=== PATIENT | male | born 1955 | race Caucasian/White ===

== ENCOUNTER 2017-07-21 16:22 | Inpatient (IN) | payer MEDICARE ==
[~2017-07-21] VITALS: Ht 180.3 cm; Wt 90.1 kg
[~2017-07-21 16:22] MED LIST: BENA5TAB2 PO; CITA10TA4 PO; DULO20CA45 PO; ETOMIDATE 40 MG/20 ML ONE; FENTANY TD; MIDAZOLAM 1 MG/ML, 5ML ONE; OXYC-307 PO; PREG25CA PO; PROPOFOL 10 MG/ML, 100ML IV ONE; SUCCINYLCHOLINE 20 MG/ML, 10ML ONE; TRAM50TA2 PO; VECURONIUM 10 MG ONE
[2017-07-21] MEDS ORDERED: SODIUM CHLORIDE FLUSH 10ML SYR IVF ONE (16:30)
[2017-07-21] MEDS ORDERED: LORazepam 2 MG/ML, 1ML ONE ×2 (16:37→19:10)
[2017-07-21 16:53] LABS: HEMATOCRIT 44.4 % (39.2-51.8); HEMOGLOBIN 14.6 g/dL (13.7-18.0); WHITE BLOOD COUNT 14.1 x10^3/uL (3.4-10)
[2017-07-21 16:58] LABS: BLOOD UREA NITROGEN 18 mg/dL (7-18)
[2017-07-21 17:02] LABS: ACETAMINOPHEN < 2 mcg/mL (10-30); ASPARTATE AMINO TRANSFERASE 18 U/L (15-37); IS PT STATUS REG ER OR PRE ER? YES
[2017-07-21 17:20] LABS: DAU SCREEN DISCLAIMER
[2017-07-21 18:07] LABS: ABG COLLECTION SITE RIGHT RADIAL; COLLATERAL CIRCULATION TESTING NORMAL
[2017-07-21] MEDS: LORazepam 2 MG/ML, 1ML IVPush PRN ×3 (18:07→19:38)
[2017-07-21] MEDS ORDERED: ZIPRASIDONE 20 MG INJ IM ONE ×2 (18:22→19:00)
[2017-07-21] MEDS ORDERED: SODIUM CHLORIDE FLUSH 10ML SYR IVF PRN (19:00)
[2017-07-21] MEDS ORDERED: FENTANYL PF 100 MCG/2ML ONE (19:24)
[2017-07-21] MEDS ORDERED: ETOMIDATE 20 MG/10 ML IV ONE (19:30)
[2017-07-21] MEDS ORDERED: SUCCINYLCHOLINE 20 MG/ML, 10ML IVPush ONE (19:30)
[2017-07-21] MEDS ORDERED: FENTANYL PF 100 MCG/2ML IV ONE (19:30)
[2017-07-21] MEDS: PROPOFOL 100 ML IV PRN ×4 (19:38→23:54)
[2017-07-21 19:51] LABS: ABG COLLECTION SITE LEFT RADIAL; COLLATERAL CIRCULATION TESTING NORMAL
[2017-07-21] MEDS ORDERED: MIDAZOLAM 1 MG/ML, 2ML IVPush ONE (20:00)
[2017-07-21] MEDS: CEFTRIAXONE PMX 2GM/50ML 50 ML IV SCH (20:00)
[2017-07-21] MEDS ORDERED: BISACODYL 10 MG SUPP PR PRN (20:00)
[2017-07-21] MEDS ORDERED: VANCOMYCIN PER PHARMACY MC PRN (20:00)
[2017-07-21] MEDS ORDERED: morphine SULFATE 10 MG/ML, 1ML IVPush PRN (20:00)
[2017-07-21] MEDS ORDERED: ONDANSETRON 2MG/ML, 2ML IVPush PRN (20:00)
[2017-07-21] MEDS ORDERED: PROPOFOL 100 ML IV ONE ×2 (20:59→23:21)
[2017-07-21] MEDS ORDERED: VECURONIUM 10 MG IVPush ONE (21:00)
[2017-07-21] MEDS ORDERED: CEFTRIAXONE PMX 1GM/50ML 0 ML ONE (21:35)
[2017-07-21] MEDS ORDERED: CEFTRIAXONE PMX 2GM/50ML 50 ML ONE (21:40)
[2017-07-21] MEDS ORDERED: PHARMACOKINETIC MONITORING MC PRN (22:30)
[2017-07-21] MEDS ORDERED: VANCOMYCIN 1,600 MG in SODIUM CHLORIDE 0.9% 250 ML IV SCH (22:30)
[2017-07-21] MEDS ORDERED: PHARMACOKINETIC CONSULTATION MC ONE (22:30)
[2017-07-21] MEDS: NS + 20MEQ KCL 1,000 ML IV SCH (22:33)
[2017-07-21] MEDS: SODIUM CHLORIDE 0.9% IV SCH (22:39)
[2017-07-21] MEDS: ACYCLOVIR IV SCH (22:39)
[2017-07-21] MEDS: FAMOTIDINE 20 MG/2 ML IVPush SCH (22:43)
[2017-07-21] MEDS: FENTANYL PF 100 MCG/2ML IVPush PRN ×2 (22:43→23:53)
[2017-07-21] MEDS: HEPARIN 5,000 UNITS/ML, 1ML SQ SCH (22:43)
[2017-07-21] MEDS: VANCOMYCIN 1,700 MG in SODIUM CHLORIDE 0.9% 250 ML IV SCH (23:53)
[2017-07-21] MEDS: QUETIAPINE 25MG TABLET PO SCH (23:53)
[2017-07-22] MEDS ORDERED: FAMOTIDINE 20 MG/2 ML IV SCH
[2017-07-22] MEDS ORDERED: SENNA/DOCUSATE TABLET NG PRN
[2017-07-22] MEDS ORDERED: BISACODYL 10 MG SUPP PR PRN
[2017-07-22] MEDS ORDERED: PHARMACY MAY ADJ FOR RENAL FX MC SCH
[2017-07-22] MEDS ORDERED: SENNOSIDES 8.8 MG/5 ML ORAL SOL NG PRN
[2017-07-22] MEDS ORDERED: LIDOCAINE-MPF 1%, 2ML ENDO PRN
[2017-07-22] MEDS ORDERED: FENTANYL PF 100 MCG/2ML IVPush PRN
[2017-07-22] MEDS ORDERED: LACTULOSE 20 GM/30 ML UDC NG PRN
[2017-07-22] MEDS ORDERED: HEPARIN 5,000 UNITS/ML, 1ML SQ SCH
[2017-07-22] MEDS: FENTANYL PF 100 MCG/2ML IVPush PRN ×8 (02:43→22:41)
[2017-07-22] MEDS: PROPOFOL 100 ML IV PRN ×6 (03:38→21:58)
[2017-07-22] MEDS: ALBUTEROL/IPRATROPIUM 2.5MG/0.5MG, 3 ML INLINE SCH ×6 (04:00→19:06)
[2017-07-22 04:10] VITALS: BP 126/66
[2017-07-22 04:14] LABS: ABG COLLECTION SITE RIGHT RADIAL; COLLATERAL CIRCULATION TESTING NORMAL
[2017-07-22 04:25] LABS: HEMATOCRIT 39.4 % (39.2-51.8); HEMOGLOBIN 12.9 g/dL (13.7-18.0); WHITE BLOOD COUNT 12.8 x10^3/uL (3.4-10)
[2017-07-22 04:28] LABS: ASPARTATE AMINO TRANSFERASE 17 U/L (15-37); BLOOD UREA NITROGEN 21 mg/dL (7-18)
[2017-07-22] MEDS: HEPARIN 5,000 UNITS/ML, 1ML SQ SCH ×3 (06:23→22:44)
[2017-07-22] MEDS: CEFTRIAXONE PMX 2GM/50ML 50 ML IV SCH ×3 (06:23→19:53)
[2017-07-22] MEDS: ACYCLOVIR IV SCH ×3 (06:41→22:43)
[2017-07-22] MEDS: SODIUM CHLORIDE 0.9% IV SCH ×3 (06:41→22:43)
[2017-07-22] MEDS: FAMOTIDINE 20 MG/2 ML IVPush SCH ×2 (09:14→21:09)
[2017-07-22] MEDS: QUETIAPINE 25MG TABLET PO SCH ×2 (09:14→15:35)
[2017-07-22] MEDS ORDERED: LIDOCAINE 1%, 20ML ONE (10:38)
[2017-07-22] MEDS: NS + 20MEQ KCL 1,000 ML IV SCH ×3 (10:44→23:02)
[2017-07-22] MEDS: VANCOMYCIN 1,700 MG in SODIUM CHLORIDE 0.9% 250 ML IV SCH (12:54)
[2017-07-22] MEDS: LORazepam 2 MG/ML, 1ML IVPush PRN (13:40)
[2017-07-22 14:24] LABS: CYTOLOGY BODY FLUID RECD INTO PATHOLOGY; CYTOLOGY BODY FLUID SOURCE CEREBROSPINAL FLUID
[2017-07-22 14:45] LABS: GLUCOSE, CSF 81 mg/dL (40-80)
[2017-07-23] MEDS: VANCOMYCIN 1,700 MG in SODIUM CHLORIDE 0.9% 250 ML IV SCH ×2 (00:04→12:00)
[2017-07-23] MEDS: QUETIAPINE 25MG TABLET PO SCH ×4 (00:04→23:50)
[2017-07-23] MEDS: PROPOFOL 100 ML IV PRN ×6 (00:46→19:56)
[2017-07-23] MEDS: FENTANYL PF 100 MCG/2ML IVPush PRN ×6 (01:12→22:38)
[2017-07-23] MEDS: ALBUTEROL/IPRATROPIUM 2.5MG/0.5MG, 3 ML INLINE SCH ×7 (03:54→22:30)
[2017-07-23 04:00] VITALS: BP 120/68
[2017-07-23 04:43] LABS: ABG COLLECTION SITE LEFT RADIAL; COLLATERAL CIRCULATION TESTING NORMAL
[2017-07-23 04:50] LABS: HEMATOCRIT 35.2 % (39.2-51.8); HEMOGLOBIN 11.5 g/dL (13.7-18.0)
[2017-07-23 04:58] LABS: BLOOD UREA NITROGEN 23 mg/dL (7-18)
[2017-07-23 05:02] LABS: ASPARTATE AMINO TRANSFERASE 15 U/L (15-37)
[2017-07-23] MEDS: SODIUM CHLORIDE 0.9% IV SCH ×3 (06:44→22:06)
[2017-07-23] MEDS: ACYCLOVIR IV SCH ×3 (06:44→22:06)
[2017-07-23] MEDS: HEPARIN 5,000 UNITS/ML, 1ML SQ SCH ×3 (06:46→22:07)
[2017-07-23] MEDS: CEFTRIAXONE PMX 2GM/50ML 50 ML IV SCH ×2 (08:43→19:56)
[2017-07-23] MEDS: FAMOTIDINE 20 MG/2 ML IVPush SCH ×2 (09:05→21:04)
[2017-07-23] MEDS: NS + 20MEQ KCL 1,000 ML IV SCH ×3 (11:21→21:02)
[2017-07-24] MEDS: PROPOFOL 100 ML IV PRN ×6 (00:10→20:47)
[2017-07-24] MEDS: ALBUTEROL/IPRATROPIUM 2.5MG/0.5MG, 3 ML INLINE SCH ×6 (02:23→21:23)
[2017-07-24 04:36] LABS: ABG COLLECTION SITE LEFT RADIAL; COLLATERAL CIRCULATION TESTING NORMAL
[2017-07-24 04:39] LABS: HEMOGLOBIN 10.6 g/dL (13.7-18.0); WHITE BLOOD COUNT 8.3 x10^3/uL (3.4-10)
[2017-07-24 04:46] VITALS: BP 123/70
[2017-07-24 04:48] LABS: BLOOD UREA NITROGEN 19 mg/dL (7-18)
[2017-07-24] MEDS: NS + 20MEQ KCL 1,000 ML IV SCH ×3 (06:26→22:30)
[2017-07-24] MEDS: SODIUM CHLORIDE 0.9% IV SCH ×3 (06:27→22:30)
[2017-07-24] MEDS: ACYCLOVIR IV SCH ×3 (06:27→22:30)
[2017-07-24] MEDS: HEPARIN 5,000 UNITS/ML, 1ML SQ SCH ×3 (06:28→22:30)
[2017-07-24] MEDS: FENTANYL PF 100 MCG/2ML IVPush PRN ×5 (07:27→23:10)
[2017-07-24] MEDS: QUETIAPINE 25MG TABLET PO SCH ×2 (08:50→16:28)
[2017-07-24] MEDS: FAMOTIDINE 20 MG/2 ML IVPush SCH ×2 (08:50→20:47)
[2017-07-24] MEDS: CEFTRIAXONE PMX 2GM/50ML 50 ML IV SCH ×2 (08:50→20:11)
[2017-07-24] MEDS ORDERED: VANCOMYCIN 1,700 MG in SODIUM CHLORIDE 0.9% 250 ML IV SCH (13:00)
[2017-07-25] MEDS: PROPOFOL 100 ML IV PRN ×7 (00:55→21:52)
[2017-07-25] MEDS: ALBUTEROL/IPRATROPIUM 2.5MG/0.5MG, 3 ML INLINE SCH ×6 (02:00→22:25)
[2017-07-25] MEDS: QUETIAPINE 25MG TABLET PO SCH ×3 (02:19→16:21)
[2017-07-25] MEDS: FENTANYL PF 100 MCG/2ML IVPush PRN ×5 (02:49→20:46)
[2017-07-25 04:21] VITALS: BP 145/85
[2017-07-25 04:32] LABS: HEMATOCRIT 33.4 % (39.2-51.8); WHITE BLOOD COUNT 7.7 x10^3/uL (3.4-10)
[2017-07-25 04:32] LABS: ABG COLLECTION SITE RIGHT RADIAL; COLLATERAL CIRCULATION TESTING NORMAL
[2017-07-25 04:45] LABS: BLOOD UREA NITROGEN 19 mg/dL (7-18)
[2017-07-25] MEDS: HEPARIN 5,000 UNITS/ML, 1ML SQ SCH ×3 (06:12→21:56)
[2017-07-25] MEDS: SODIUM CHLORIDE 0.9% IV SCH ×3 (06:13→21:53)
[2017-07-25] MEDS: ACYCLOVIR IV SCH ×3 (06:13→21:53)
[2017-07-25] MEDS: FAMOTIDINE 20 MG/2 ML IVPush SCH ×2 (07:23→20:43)
[2017-07-25] MEDS: CEFTRIAXONE PMX 2GM/50ML 50 ML IV SCH ×2 (07:23→20:40)
[2017-07-25] MEDS: ERGOCALCIFEROL 50,000 UNIT CAPSULE PO SCH (09:54)
[2017-07-25] MEDS: POTASSIUM CHLORIDE 40 MEQ in SODIUM CHLORIDE 0.45% 1,000 ML IV SCH (12:10)
[2017-07-26] MEDS: QUETIAPINE 25MG TABLET PO SCH ×3 (00:25→16:46)
[2017-07-26] MEDS: FENTANYL PF 100 MCG/2ML IVPush PRN ×2 (01:40→03:08)
[2017-07-26] MEDS: ALBUTEROL/IPRATROPIUM 2.5MG/0.5MG, 3 ML INLINE SCH ×6 (02:25→21:53)
[2017-07-26] MEDS: PROPOFOL 100 ML IV PRN ×7 (02:33→23:16)
[2017-07-26] MEDS: POTASSIUM CHLORIDE 40 MEQ in SODIUM CHLORIDE 0.45% 1,000 ML IV SCH ×2 (03:28→17:36)
[2017-07-26 04:00] VITALS: BP 138/73
[2017-07-26 04:32] LABS: HEMATOCRIT 33.7 % (39.2-51.8); HEMOGLOBIN 11.2 g/dL (13.7-18.0); WHITE BLOOD COUNT 9.2 x10^3/uL (3.4-10)
[2017-07-26 04:44] LABS: BLOOD UREA NITROGEN 21 mg/dL (7-18)
[2017-07-26 05:19] LABS: ABG COLLECTION SITE RIGHT RADIAL; COLLATERAL CIRCULATION TESTING NORMAL
[2017-07-26] MEDS: SODIUM CHLORIDE 0.9% IV SCH ×3 (06:18→23:16)
[2017-07-26] MEDS: HEPARIN 5,000 UNITS/ML, 1ML SQ SCH ×3 (06:18→23:16)
[2017-07-26] MEDS: ACYCLOVIR IV SCH ×3 (06:18→23:16)
[2017-07-26] MEDS: CEFTRIAXONE PMX 2GM/50ML 50 ML IV SCH ×2 (07:40→19:56)
[2017-07-26] MEDS: LORazepam 2 MG/ML, 1ML IVPush PRN ×3 (07:40→20:20)
[2017-07-26] MEDS: FAMOTIDINE 20 MG/2 ML IVPush SCH ×2 (07:40→20:20)
[2017-07-27] MEDS: QUETIAPINE 25MG TABLET PO SCH ×3 (00:08→19:36)
[2017-07-27] MEDS: FENTANYL PF 100 MCG/2ML IVPush PRN ×5 (01:08→15:17)
[2017-07-27] MEDS: ALBUTEROL/IPRATROPIUM 2.5MG/0.5MG, 3 ML INLINE SCH ×6 (01:43→22:00)
[2017-07-27] MEDS: PROPOFOL 100 ML IV PRN ×6 (04:07→21:09)
[2017-07-27 04:18] VITALS: BP_SYST 128; BP_SYST 129; BP_DIAS 70; BP_DIAS 92
[2017-07-27 04:42] LABS: ABG COLLECTION SITE LEFT RADIAL; COLLATERAL CIRCULATION TESTING NORMAL
[2017-07-27 04:44] LABS: HEMATOCRIT 32.8 % (39.2-51.8); HEMOGLOBIN 10.9 g/dL (13.7-18.0); WHITE BLOOD COUNT 7.5 x10^3/uL (3.4-10)
[2017-07-27 04:54] LABS: BLOOD UREA NITROGEN 20 mg/dL (7-18)
[2017-07-27] MEDS: HEPARIN 5,000 UNITS/ML, 1ML SQ SCH ×3 (06:24→22:20)
[2017-07-27] MEDS: ACYCLOVIR IV SCH ×3 (06:24→22:20)
[2017-07-27] MEDS: SODIUM CHLORIDE 0.9% IV SCH ×3 (06:24→22:20)
[2017-07-27] MEDS: CEFTRIAXONE PMX 2GM/50ML 50 ML IV SCH ×2 (09:38→19:36)
[2017-07-27] MEDS: METOCLOPRAMIDE 5 MG/ML, 2ML IV SCH ×3 (09:39→20:14)
[2017-07-27] MEDS: FAMOTIDINE 20 MG/2 ML IVPush SCH ×2 (09:39→20:17)
[2017-07-27] MEDS: POTASSIUM CHLORIDE 40 MEQ in SODIUM CHLORIDE 0.45% 1,000 ML IV SCH (09:41)
[2017-07-27] MEDS: MIDAZOLAM 1 MG/ML, 2ML IVPush PRN ×3 (12:01→16:48)
[2017-07-27 12:07] LABS: WEST NILE VIRUS IGG CSF Negative (Negative); WEST NILE VIRUS IGM CSF Negative (Negative)
[2017-07-27] MEDS: LORazepam 2 MG/ML, 1ML IVPush PRN (20:16)
[2017-07-28] MEDS: QUETIAPINE 25MG TABLET PO SCH ×3 (00:55→16:27)
[2017-07-28] MEDS: PROPOFOL 100 ML IV PRN ×2 (00:55→05:24)
[2017-07-28] MEDS: POTASSIUM CHLORIDE 40 MEQ in SODIUM CHLORIDE 0.45% 1,000 ML IV SCH ×2 (01:17→16:26)
[2017-07-28] MEDS: ALBUTEROL/IPRATROPIUM 2.5MG/0.5MG, 3 ML INLINE SCH ×3 (02:00→10:00)
[2017-07-28] MEDS: METOCLOPRAMIDE 5 MG/ML, 2ML IV SCH ×4 (02:36→20:12)
[2017-07-28] MEDS: FENTANYL PF 100 MCG/2ML IVPush PRN (02:37)
[2017-07-28 04:00] VITALS: BP 142/72
[2017-07-28 04:33] LABS: ABG COLLECTION SITE LEFT RADIAL; COLLATERAL CIRCULATION TESTING NORMAL
[2017-07-28 04:41] LABS: HEMATOCRIT 35.7 % (39.2-51.8); HEMOGLOBIN 12.1 g/dL (13.7-18.0); WHITE BLOOD COUNT 8.4 x10^3/uL (3.4-10)
[2017-07-28 05:08] LABS: BLOOD UREA NITROGEN 22 mg/dL (7-18)
[2017-07-28] MEDS: HEPARIN 5,000 UNITS/ML, 1ML SQ SCH ×3 (06:03→21:53)
[2017-07-28] MEDS: SODIUM CHLORIDE 0.9% IV SCH (06:03)
[2017-07-28] MEDS: ACYCLOVIR IV SCH (06:03)
[2017-07-28] MEDS: CEFTRIAXONE PMX 2GM/50ML 50 ML IV SCH ×2 (08:37→20:12)
[2017-07-28] MEDS: FAMOTIDINE 20 MG/2 ML IVPush SCH ×2 (08:43→20:12)
[2017-07-28] MEDS: hydrALAzine 20 MG/ML, 1ML IVPush PRN ×2 (14:27→18:07)
[2017-07-28] MEDS ORDERED: ENALAPRILAT 1.25 MG/ML, 2ML ONE (21:49)
[2017-07-28] MEDS ORDERED: ENALAPRILAT 1.25 MG/ML, 2ML IV PRN (22:00)
[2017-07-28] MEDS ORDERED: hydrALAzine 20 MG/ML, 1ML IV PRN (22:00)
[2017-07-29] MEDS: LABETALOL 5MG/ML, 20ML IVPush PRN ×2 (00:38→04:03)
[2017-07-29] MEDS: QUETIAPINE 25MG TABLET PO SCH ×2 (00:48→07:51)
[2017-07-29] MEDS: METOCLOPRAMIDE 5 MG/ML, 2ML IV SCH ×2 (02:30→07:51)
[2017-07-29 04:04] VITALS: BP 174/94
[2017-07-29 04:17] LABS: ABG COLLECTION SITE RIGHT RADIAL; COLLATERAL CIRCULATION TESTING NORMAL
[2017-07-29 04:19] LABS: HEMATOCRIT 38.8 % (39.2-51.8); HEMOGLOBIN 13.1 g/dL (13.7-18.0); WHITE BLOOD COUNT 9.4 x10^3/uL (3.4-10)
[2017-07-29 04:33] LABS: BLOOD UREA NITROGEN 20 mg/dL (7-18)
[2017-07-29] MEDS: POTASSIUM CHLORIDE 40 MEQ in SODIUM CHLORIDE 0.45% 1,000 ML IV SCH ×2 (05:06→07:40)
[2017-07-29] MEDS: HEPARIN 5,000 UNITS/ML, 1ML SQ SCH ×3 (05:22→20:13)
[2017-07-29] MEDS: CEFTRIAXONE PMX 2GM/50ML 50 ML IV SCH (07:41)
[2017-07-29] MEDS: FAMOTIDINE 20 MG/2 ML IVPush SCH (07:51)
[2017-07-29] MEDS: CEFTRIAXONE PMX 1GM/50ML 50 ML IV SCH (10:30)
[2017-07-29] MEDS: hydrALAzine 20 MG/ML, 1ML IVPush PRN ×2 (11:01→20:21)
[2017-07-29 13:14] VITALS: BP 127/83
[2017-07-29 19:13] VITALS: BP 159/112
[2017-07-29] MEDS: OXYcodone IR 5MG TABLET PO PRN (22:18)
[2017-07-29] MEDS ORDERED: DIPHENHYDRAMINE 25 MG CAPSULE PO ONE (22:30)
[2017-07-30 02:00] VITALS: BP 149/97
[2017-07-30 06:01] LABS: BLOOD UREA NITROGEN 30 mg/dL (7-18)
[2017-07-30] MEDS: HEPARIN 5,000 UNITS/ML, 1ML SQ SCH ×3 (06:07→21:16)
[2017-07-30 06:16] LABS: HEMATOCRIT 42.1 % (39.2-51.8); HEMOGLOBIN 14.2 g/dL (13.7-18.0); WHITE BLOOD COUNT 11.6 x10^3/uL (3.4-10)
[2017-07-30] MEDS ORDERED: POTASSIUM CHLORIDE 20 MEQ TAB.ER.PRT PO ONE (07:00)
[2017-07-30 07:07] VITALS: BP 133/90
[2017-07-30] MEDS: OXYcodone IR 5MG TABLET PO PRN ×4 (07:34→21:16)
[2017-07-30] MEDS: CEFTRIAXONE PMX 1GM/50ML 50 ML IV SCH (10:05)
[2017-07-30] MEDS ORDERED: ERGO500017 PO (10:41)
[2017-07-30] MEDS ORDERED: CEFD300C37 PO (10:41)
[2017-07-30] MEDS: DIPHENHYDRAMINE 25 MG CAPSULE PO PRN ×2 (11:50→21:16)
[2017-07-30 12:55] VITALS: BP 140/101
[2017-07-30] MEDS: LABETALOL 5MG/ML, 20ML IVPush PRN (13:13)
[2017-07-30 20:02] VITALS: BP 115/75
[2017-07-31 03:19] VITALS: BP 129/86
[2017-07-31] MEDS: HEPARIN 5,000 UNITS/ML, 1ML SQ SCH ×3 (05:14→21:35)
[2017-07-31 05:44] LABS: BLOOD UREA NITROGEN 33 mg/dL (7-18)
[2017-07-31] MEDS: OXYcodone IR 5MG TABLET PO PRN ×5 (05:55→22:21)
[2017-07-31 06:12] LABS: HEMATOCRIT 42.2 % (39.2-51.8); WHITE BLOOD COUNT 11.2 x10^3/uL (3.4-10)
[2017-07-31 07:26] VITALS: BP 131/93
[2017-07-31] MEDS: DIPHENHYDRAMINE 25 MG CAPSULE PO PRN ×2 (07:53→22:21)
[2017-07-31] MEDS: CEFTRIAXONE PMX 1GM/50ML 50 ML IV SCH (09:47)
[2017-07-31 11:03] VITALS: BP_SYST 116; BP_SYST 133; BP_SYST 135; BP_DIAS 72; BP_DIAS 80; BP_DIAS 85
[2017-07-31] MEDS: SODIUM CHLORIDE 0.9% 1,000 ML IV SCH ×2 (11:44→21:35)
[2017-07-31 13:48] VITALS: BP_SYST 123; BP_SYST 127; BP_SYST 138; BP_DIAS 76; BP_DIAS 87; BP_DIAS 89
[2017-07-31 21:25] VITALS: BP_SYST 120; BP_SYST 140; BP_SYST 176; BP_DIAS 101; BP_DIAS 119; BP_DIAS 75
[2017-08-01 01:57] VITALS: BP_SYST 133; BP_SYST 136; BP_SYST 138; BP_DIAS 85; BP_DIAS 87; BP_DIAS 89
[2017-08-01 05:55] LABS: BLOOD UREA NITROGEN 28 mg/dL (7-18)
[2017-08-01 05:58] LABS: HEMATOCRIT 36.8 % (39.2-51.8); HEMOGLOBIN 12.4 g/dL (13.7-18.0); WHITE BLOOD COUNT 9.5 x10^3/uL (3.4-10)
[2017-08-01] MEDS: HEPARIN 5,000 UNITS/ML, 1ML SQ SCH ×3 (06:03→20:20)
[2017-08-01] MEDS: OXYcodone IR 5MG TABLET PO PRN ×3 (06:03→18:31)
[2017-08-01 08:00] VITALS: BP 152/87
[2017-08-01] MEDS: SODIUM CHLORIDE 0.9% 1,000 ML IV SCH ×2 (09:37→18:23)
[2017-08-01] MEDS: CEFTRIAXONE PMX 1GM/50ML 50 ML IV SCH (09:37)
[2017-08-01] MEDS: ERGOCALCIFEROL 50,000 UNIT CAPSULE PO SCH (09:37)
[2017-08-01 14:46] VITALS: BP 151/103
[2017-08-01 14:48] VITALS: BP 155/94
[2017-08-01 14:50] VITALS: BP 137/87
[2017-08-01 19:28] VITALS: BP 143/91
[2017-08-01] MEDS: DIPHENHYDRAMINE 25 MG CAPSULE PO PRN (20:20)
[2017-08-02 02:15] VITALS: BP 135/74
[2017-08-02] MEDS: SODIUM CHLORIDE 0.9% 1,000 ML IV SCH ×3 (04:02→23:55)
[2017-08-02] MEDS: OXYcodone IR 5MG TABLET PO PRN ×5 (04:02→22:23)
[2017-08-02 04:19] LABS: ABG COLLECTION SITE RIGHT BRACHIAL
[2017-08-02 04:28] LABS: HEMOGLOBIN 12.5 g/dL (13.7-18.0); WHITE BLOOD COUNT 8.7 x10^3/uL (3.4-10)
[2017-08-02 04:32] LABS: BLOOD UREA NITROGEN 20 mg/dL (7-18)
[2017-08-02] MEDS: HEPARIN 5,000 UNITS/ML, 1ML SQ SCH ×3 (04:32→21:16)
[2017-08-02 07:10] VITALS: BP 137/89
[2017-08-02] MEDS: CEFTRIAXONE PMX 1GM/50ML 50 ML IV SCH (10:10)
[2017-08-02 12:51] VITALS: BP 155/89
[2017-08-02 19:22] VITALS: BP 154/81
[2017-08-03 02:04] VITALS: BP 149/93
[2017-08-03] MEDS: OXYcodone IR 5MG TABLET PO PRN ×5 (05:33→21:15)
[2017-08-03] MEDS: HEPARIN 5,000 UNITS/ML, 1ML SQ SCH ×3 (05:34→21:15)
[2017-08-03 05:45] LABS: ABG COLLECTION SITE LEFT RADIAL
[2017-08-03 05:46] LABS: COLLATERAL CIRCULATION TESTING NORMAL
[2017-08-03 06:04] LABS: BLOOD UREA NITROGEN 22 mg/dL (7-18)
[2017-08-03 06:11] LABS: HEMATOCRIT 37.8 % (39.2-51.8); HEMOGLOBIN 12.8 g/dL (13.7-18.0); WHITE BLOOD COUNT 9.3 x10^3/uL (3.4-10)
[2017-08-03 06:47] VITALS: BP 144/85
[2017-08-03] MEDS: SODIUM CHLORIDE 0.9% 1,000 ML IV SCH ×2 (09:21→17:22)
[2017-08-03] MEDS: CEFTRIAXONE PMX 1GM/50ML 50 ML IV SCH (11:07)
[2017-08-03 14:20] VITALS: BP 144/88
[2017-08-03 19:20] VITALS: BP 138/98
[2017-08-03] MEDS: DIPHENHYDRAMINE 25 MG CAPSULE PO PRN (20:20)
[2017-08-04] MEDS: OXYcodone IR 5MG TABLET PO PRN ×4 (01:10→13:42)
[2017-08-04 01:57] VITALS: BP 128/80
[2017-08-04] MEDS: SODIUM CHLORIDE 0.9% 1,000 ML IV SCH (03:31)
[2017-08-04 05:18] LABS: HEMATOCRIT 39.9 % (39.2-51.8); HEMOGLOBIN 13.1 g/dL (13.7-18.0); WHITE BLOOD COUNT 11.3 x10^3/uL (3.4-10)
[2017-08-04 05:26] LABS: BLOOD UREA NITROGEN 21 mg/dL (7-18)
[2017-08-04] MEDS: HEPARIN 5,000 UNITS/ML, 1ML SQ SCH ×2 (05:33→13:42)
[2017-08-04 07:08] VITALS: BP 143/88
[2017-08-04] MEDS: CEFTRIAXONE PMX 1GM/50ML 50 ML IV SCH (10:00)
[2017-08-04 12:47] VITALS: BP 137/81
== END 2017-08-04 16:18 | disposition home health service (06) | DRG 870 ==
LOC: ED 18:26 → EDIP 18:49 → CCU 22:11 → 4EST 07-29 11:54 → 4NOR 08-03 09:07 → DCLOUNGE 08-04 16:07
PROVIDERS: ADMIT Hospitalist; ATTEND Hospitalist
PROC: 0BH17EZ Insertion of Endotracheal Airway into Trachea, Via Natural or Artificial Opening (ICD-10-PCS; principal; 2017-07-21)
PROC: 5A1955Z Respiratory Ventilation, Greater than 96 Consecutive Hours (ICD-10-PCS; 2017-07-21)
PROC: 0T9B70Z Drainage of Bladder with Drainage Device, Via Natural or Artificial Opening (ICD-10-PCS; 2017-07-21)
PROC: 009U3ZX Drainage of Spinal Canal, Percutaneous Approach, Diagnostic (ICD-10-PCS; 2017-07-22)
DX: A41.01 Sepsis due to Methicillin susceptible Staphylococcus aureus (principal); J96.00 Acute respiratory failure, unspecified whether with hypoxia or hypercapnia; G93.41 Metabolic encephalopathy; T68.XXXA Hypothermia, initial encounter; Z99.11 Dependence on respirator [ventilator] status; J15.0 Pneumonia due to Klebsiella pneumoniae; A87.9 Viral meningitis, unspecified; E87.6 Hypokalemia; M79.7 Fibromyalgia; I10 Essential (primary) hypertension; M19.90 Unspecified osteoarthritis, unspecified site; F12.90 Cannabis use, unspecified, uncomplicated; E55.9 Vitamin D deficiency, unspecified; Z86.73 Personal history of transient ischemic attack (TIA), and cerebral infarction without residual deficits; Z88.0 Allergy status to penicillin; Z75.1 Person awaiting admission to adequate facility elsewhere; E05.90 Thyrotoxicosis, unspecified without thyrotoxic crisis or storm
CPT/HCPCS: 31500; 36415; 36600; 51702; 62270; 70450; 70551; 71010; 74000; 74245; 77002; 80048; 80053; 80202; 80307; 80329; 81001; 82140; 82306; 82607; 82803; 82945; 82962; 83605; 83735; 84100; 84145; 84157; 84439; 84443; 84478; 84484; 85025; 85610; 85730; 86788; 86789; 87040; 87070; 87075; 87077; 87081; 87102; 87116; 87186; 87205; 87206; 87252; 87324; 87496; 87529; 87798; 88108; 89051; 93005; 94002; 94003; 94640; 95819; 96372; 96374; 96375; 96376; J0133; J0696; J1644; J2250; J2704; J3010; J3370; J3480; J3486; J3490; J7620; G0479; G0480; J0330; J0360; J2060; J2270; J2765; J7030; J7050; Q0163; S0028

== ENCOUNTER 2018-12-25 20:00 | Emergency (ER) | payer MEDICARE ==
[~2018-12-25] VITALS: Ht 177.8 cm; Wt 100.0 kg
[~2018-12-25 20:00] MED LIST changes: -BENA5TAB2 PO; +BENA5TAB3 PO; +CEFD300C37 PO; +ERGO500017 PO; -ETOMIDATE 40 MG/20 ML ONE; -MIDAZOLAM 1 MG/ML, 5ML ONE; -PROPOFOL 10 MG/ML, 100ML IV ONE; -SUCCINYLCHOLINE 20 MG/ML, 10ML ONE; -VECURONIUM 10 MG ONE
--- NOTE | 2018-12-25 20:15 | NUR ---
PT BROUGHT IN BY AMBULANCE FOR N/V, VERY DIAPHORETIC AND TRYING TO VOMIT. A&O X3, ABLE TO TALK, GRAYISH IN COLOR
[2018-12-25] MEDS ORDERED: SODIUM CHLORIDE 0.9% 1,000ML IVBOLUS ONE (20:30)
[2018-12-25] MEDS ORDERED: ONDANSETRON 2MG/ML, 2ML IVPush ONE (20:30)
[2018-12-25] MEDS ORDERED: PROMETHAZINE 25 MG/ML, 1ML IM ONE (20:30)
[2018-12-25] MEDS ORDERED: PROMETHAZINE 25 MG/ML, 1ML ONE (20:48)
[2018-12-25] MEDS ORDERED: ONDANSETRON 2MG/ML, 2ML ONE (20:48)
[2018-12-25 21:01] LABS: MEAN CORPUSCULAR HEMOGLOBIN 29.7 pg (27.5-34.5); MEAN CORPUSCULAR HGB CONC 33.4 g/dL (33.2-36.2); MEAN CORPUSCULAR VOLUME 88.9 fL (81-97); MEAN PLATELET VOLUME 9.2 fL (7.4-10.4); PLATELET COUNT 285 x10^3/uL (130-400); RED BLOOD COUNT 5.25 x10^6/uL (4.38-5.82); RED CELL DISTRIBUTION WIDTH 13.6 % (9.4-14.8)
[2018-12-25 21:09] LABS: ALBUMIN 4.1 g/dL (3.4-5.0); ANION GAP 12 mmol/L (5-15); CALCIUM 9.5 mg/dL (8.5-10.1); CHLORIDE 112 mmol/L (98-107)
[2018-12-25 21:12] LABS: ALANINE AMINOTRANSFERASE 35 U/L (12-78); ALKALINE PHOSPHATASE 135 U/L (45-117); BILIRUBIN,TOTAL 0.4 mg/dL (0.2-1.0); CREATININE 1.14 mg/dL (0.7-1.3); TOTAL PROTEIN 8.1 g/dL (6.4-8.2)
--- NOTE | 2018-12-25 21:30 | NUR ---
PT RESTING QUIETLY WITH EYES CLOSED, NO DISTRESS NOTED
[2018-12-25 21:47] LABS: BASOPHILS # (AUTO) 0.13 x10^3/uL (0-0.1); BASOPHILS % (AUTO) 1 % (0-1); EOSINOPHILS # (AUTO) 0.64 x10^3/uL (0-0.4); EOSINOPHILS % (AUTO) 4 % (1-7); LYMPHOCYTES # (AUTO) 7.61 x10^3/uL (1-3.4); LYMPHOCYTES % (AUTO) 46 % (22-44); MD SCAN; MONOCYTES # (AUTO) 1.47 x10^3/uL (0.2-0.8); MONOCYTES % (AUTO) 9 % (2-9); NEUTROPHILS # (AUTO) 6.71 x10^3/uL (1.8-6.8); NEUTROPHILS % (AUTO) 41 % (42-75)
[2018-12-25 22:17] LABS: MICROSCOPIC AUTO
[2018-12-25 22:18] LABS: CULTURE INDICATED? NO
[2018-12-25] MEDS ORDERED: POTASSIUM CHLORIDE 20 MEQ TAB.ER.PRT PO ONE (22:30)
--- NOTE | 2018-12-25 22:32 | NUR ---
PRICILLA FUENTES- ROOMMATE [phone]. REENEIDATS CALL BACK FOR UPDATE.
[2018-12-25] MEDS ORDERED: POTASSIUM CHLORIDE 20 MEQ TAB.ER.PRT ONE (22:52)
--- NOTE | 2018-12-25 23:02 | NUR ---
PT TAKING FLUIDS WELL, NOW PINK AND TALKING
[2018-12-25 23:45] VITALS: BP 134/95
== END 2018-12-25 23:52 | disposition home or self-care (01) ==
LOC: ED 22:14
DX: E86.0 Dehydration (principal); E87.6 Hypokalemia; R11.2 Nausea with vomiting, unspecified; I10 Essential (primary) hypertension
CPT/HCPCS: 36415; 70450; 74021; 80053; 81001; 82962; 83690; 85025; 93005; 96361; 96372; 96374; 99284; J2405; J2550; J7030

== ENCOUNTER 2019-06-27 13:20 | Emergency (ER) | payer MEDICARE ==
[~2019-06-27] VITALS: Ht 177.8 cm; Wt 92.4 kg
[2019-06-27 13:54] LABS: BASOPHILS # (AUTO) 0.17 x10^3/uL (0-0.1); BASOPHILS % (AUTO) 2 % (0-1); EOSINOPHILS # (AUTO) 0.22 x10^3/uL (0-0.4); EOSINOPHILS % (AUTO) 2 % (1-7); LYMPHOCYTES # (AUTO) 4.55 x10^3/uL (1-3.4); LYMPHOCYTES % (AUTO) 46 % (22-44); MD NO; MEAN CORPUSCULAR HEMOGLOBIN 29.8 pg (27.5-34.5); MEAN CORPUSCULAR HGB CONC 32.9 g/dL (33.2-36.2); MEAN CORPUSCULAR VOLUME 90.5 fL (81-97); MEAN PLATELET VOLUME 8.4 fL (7.4-10.4); MONOCYTES # (AUTO) 0.94 x10^3/uL (0.2-0.8); MONOCYTES % (AUTO) 10 % (2-9); NEUTROPHILS # (AUTO) 3.95 x10^3/uL (1.8-6.8); NEUTROPHILS % (AUTO) 40 % (42-75); PLATELET COUNT 323 x10^3/uL (130-400); RED BLOOD COUNT 5.09 x10^6/uL (4.38-5.82); RED CELL DISTRIBUTION WIDTH 14.9 % (9.4-14.8)
[2019-06-27 13:58] LABS: ALBUMIN 4.3 g/dL (3.4-5.0); ANION GAP 8 mmol/L (5-15); CALCIUM 9.7 mg/dL (8.5-10.1); CHLORIDE 113 mmol/L (98-107)
[2019-06-27] MEDS ORDERED: ASPIRIN 81 MG TABLET CHEW PO ONE (14:00)
[2019-06-27 14:04] LABS: CREATININE 1.26 mg/dL (0.7-1.3); TROPONIN I < 0.015 ng/mL (0.000-0.045)
[2019-06-27 15:47] VITALS: BP 138/79
--- NOTE | 2019-06-27 15:47 | NUR ---
PT HERE TODAY FOR COUGH THAT HAS BEEN GOING ON FOR 3 WEEKS. PT STATES HE WAS FEBRILE 3 WEEKS AGO. DENIES PAIN. DENIES CP. STATES HE IS SOB WITH EXERTION. PT 99% ON RA AT THIS TIME. PT RESTING ON GURNEY. DENIES NEEDS. VSS. CLAU.
--- NOTE | 2019-06-27 15:53 | NUR ---
PT MEDICATED PER EMAR. PA WAS AT BEDSIDE UPDATING POC. PT DENIES NEEDS.
--- NOTE | 2019-06-27 16:18 | NUR ---
AT BEDSIDE TO DISCUSS DC PLAN WITH PT.
== END 2019-06-27 16:22 | disposition home or self-care (01) ==
LOC: ED 16:16
DX: J20.9 Acute bronchitis, unspecified (principal); R51 Headache; I10 Essential (primary) hypertension; G89.29 Other chronic pain; Z86.73 Personal history of transient ischemic attack (TIA), and cerebral infarction without residual deficits; M19.90 Unspecified osteoarthritis, unspecified site
CPT/HCPCS: 36415; 71046; 80048; 82040; 84484; 85025; 93005; 99284

== ENCOUNTER → 2020-12-06 | Outpatient (CLI) | payer MEDICARE | END | disposition home or self-care (01) | LOC: CVU 15:47 | PROVIDERS: ATTEND Internal Medicine | DX: I35.8 Other nonrheumatic aortic valve disorders (principal); I11.9 Hypertensive heart disease without heart failure; R06.00 Dyspnea, unspecified | CPT/HCPCS: 93306; 93356 ==